=== PATIENT | female | born 1940 | race Caucasian/White ===

== ENCOUNTER 2018-07-11 06:00 | Outpatient (RCR) | payer MEDICARE ==
[~2018-07-11 06:00] MED LIST: ATOR40TA; CHOL10003 PO; CLPD75T; HYDRALAZINE HCL; LSNP10T; METOPROLOL SUCCINATE
== END 2018-07-14 | disposition home or self-care (01) ==
LOC: CR3 06:00
PROVIDERS: ATTEND Internal Medicine
DX: Z29.8 Encounter for other specified prophylactic measures (principal)

== ENCOUNTER 2018-08-11 13:59 | Outpatient (RCR) | payer MEDICARE | END 2018-08-17 | disposition home or self-care (01) | LOC: CR3 13:59 | PROVIDERS: ATTEND Internal Medicine | DX: Z29.8 Encounter for other specified prophylactic measures (principal) ==

== ENCOUNTER 2018-09-22 08:13 | Outpatient (RCR) | payer MEDICARE | END 2018-09-23 | disposition home or self-care (01) | LOC: CR3 08:13 | PROVIDERS: ATTEND Internal Medicine | DX: Z29.8 Encounter for other specified prophylactic measures (principal) ==

== ENCOUNTER 2018-10-25 08:05 | Outpatient (RCR) | payer MEDICARE | END 2018-10-26 | disposition home or self-care (01) | LOC: CR3 08:05 | PROVIDERS: ATTEND Internal Medicine | DX: Z29.8 Encounter for other specified prophylactic measures (principal) ==

== ENCOUNTER 2018-11-22 08:12 | Outpatient (RCR) | payer MEDICARE | END 2018-11-26 | disposition home or self-care (01) | LOC: CR3 08:12 | PROVIDERS: ATTEND Internal Medicine | DX: Z29.8 Encounter for other specified prophylactic measures (principal) ==

== ENCOUNTER 2018-12-27 08:19 | Outpatient (RCR) | payer MEDICARE | END 2018-12-28 | disposition home or self-care (01) | LOC: CR3 08:19 | PROVIDERS: ATTEND Internal Medicine | DX: Z29.8 Encounter for other specified prophylactic measures (principal) ==

== ENCOUNTER 2019-01-26 09:35 | Outpatient (RCR) | payer MEDICARE | END 2019-01-27 | disposition home or self-care (01) | LOC: CR3 09:35 | PROVIDERS: ATTEND Internal Medicine | DX: Z29.8 Encounter for other specified prophylactic measures (principal) ==

== ENCOUNTER 2019-03-07 10:26 | Outpatient (RCR) | payer MEDICARE | END 2019-03-11 | disposition home or self-care (01) | LOC: CR3 10:26 | PROVIDERS: ATTEND Internal Medicine | DX: Z29.8 Encounter for other specified prophylactic measures (principal) ==

== ENCOUNTER 2019-04-10 06:00 | Outpatient (RCR) | payer MEDICARE | END 2019-04-11 | disposition home or self-care (01) | LOC: CR3 06:00 | PROVIDERS: ATTEND Internal Medicine | DX: Z29.8 Encounter for other specified prophylactic measures (principal) ==

== ENCOUNTER 2019-05-09 09:12 | Outpatient (RCR) | payer MEDICARE | END 2019-05-13 | disposition home or self-care (01) | LOC: CR3 09:12 | PROVIDERS: ATTEND Internal Medicine | DX: Z29.8 Encounter for other specified prophylactic measures (principal) ==

== ENCOUNTER → 2019-05-29 | Outpatient (CLI) | payer MEDICARE ==
[2019-05-29 16:27] LABS: ABSOLUTE RETIC # 83 10e9/L (24-90); RETICULOCYTE % 1.49 % (0.50-2.40)
[2019-05-29 16:54] LABS: BAND NEUTROPHILS 2 %; NEUTROPHILS % (MANUAL) 68 %
[2019-05-29 16:55] LABS: EOSINOPHILS % (MANUAL) 5 %; LYMPHOCYTES % (MANUAL) 17 %; METAMYELOCYTES % 1 %; MONOCYTES % (MANUAL) 7 %; RBC MORPH NORMAL
== END ==
LOC: LABNPT 16:17
PROVIDERS: ATTEND Family Medicine
DX: Z01.812 Encounter for preprocedural laboratory examination (principal)
CPT/HCPCS: 85007; 85045

== ENCOUNTER 2019-06-06 09:31 | Outpatient (RCR) | payer MEDICARE | END 2019-06-13 | disposition home or self-care (01) | LOC: CR3 09:31 | PROVIDERS: ATTEND Internal Medicine | DX: Z29.8 Encounter for other specified prophylactic measures (principal) ==

== ENCOUNTER → 2019-07-05 | Outpatient (CLI) | payer MEDICARE | LOC: RAD 12:12 | PROVIDERS: ATTEND Internal Medicine Hematology & Oncology | DX: Z53.9 Procedure and treatment not carried out, unspecified reason (principal); R27.0 Ataxia, unspecified ==

== ENCOUNTER 2019-08-03 09:15 | Outpatient (RCR) | payer MEDICARE | END 2019-08-22 | disposition home or self-care (01) | LOC: CR3 09:15 | PROVIDERS: ATTEND Internal Medicine | DX: Z29.8 Encounter for other specified prophylactic measures (principal) ==

== ENCOUNTER 2019-08-24 13:00 | Outpatient (RCR) | payer MEDICARE | END 2019-09-23 | disposition home or self-care (01) | LOC: CR3 13:00 | PROVIDERS: ATTEND Internal Medicine | DX: Z29.8 Encounter for other specified prophylactic measures (principal) ==

== ENCOUNTER 2019-10-10 20:21 | Outpatient (CLI) | payer MEDICARE | END 2019-10-11 07:00 | disposition home or self-care (01) | LOC: SLEEP 20:21 | PROVIDERS: ATTEND Internal Medicine Hematology & Oncology | DX: G47.9 Sleep disorder, unspecified (principal); R06.83 Snoring | CPT/HCPCS: 95810 ==

== ENCOUNTER 2019-10-30 06:00 | Outpatient (RCR) | payer MEDICARE | END 2019-11-25 | disposition home or self-care (01) | LOC: CR3 06:00 | PROVIDERS: ATTEND Internal Medicine | DX: Z29.8 Encounter for other specified prophylactic measures (principal) ==

== ENCOUNTER → 2020-02-04 | Outpatient (CLI) | payer OTHER, MEDICARE ==
[2020-02-04 16:04] LABS: EOSINOPHILS % (AUTO) 9 % (0-10); HEMATOCRIT 49 % (35-52); HEMOGLOBIN 15.4 G/DL (11.5-16.0); LYMPHOCYTES % (AUTO) 15 % (12-44); MEAN CORPUSCULAR HEMOGLOBIN 31 PG (25-34); MEAN CORPUSCULAR HGB CONC 32 G/DL (32-36); MEAN CORPUSCULAR VOLUME 97 FL (80-99); MEAN PLATELET VOLUME 11.1 FL (7.4-10.4); MONOCYTES % (AUTO) 9 % (0-12); NEUTROPHILS % (AUTO) 67 % (42-75); PLATELET COUNT 139 10^3/uL (130-400); RED CELL DISTRIBUTION WIDTH 13.1 % (10.0-14.5); WHITE BLOOD COUNT 21.4 10^3/uL (4.3-11.0)
[2020-02-04 16:05] LABS: BAND NEUTROPHILS 0 %; BASOPHILS # (AUTO) 0.1 10^3/uL (0.0-0.1); BASOPHILS % (AUTO) 1 % (0-10); BASOPHILS % (MANUAL) 1 %; EOSINOPHILS % (MANUAL) 11 %; LYMPHOCYTES # (AUTO) 3.3 X 10^3 (1.0-4.0); LYMPHOCYTES % (MANUAL) 11 %; MONOCYTES # (AUTO) 1.8 X 10^3 (0.0-1.0); MONOCYTES % (MANUAL) 6 %; NEUTROPHILS # (AUTO) 14.2 X 10^3 (1.8-7.8); NEUTROPHILS % (MANUAL) 71 %; RBC MORPH NORMAL
[2020-02-04 16:06] LABS: ABSOLUTE RETIC # 108 10e9/L (24-90); RETICULOCYTE % 2.15 % (0.50-2.40)
[2020-02-04 16:09] LABS: POLYCHROMASIA SLIGHT
== END ==
LOC: GIR 06:33
PROVIDERS: ATTEND Family Medicine
DX: D72.829 Elevated white blood cell count, unspecified (principal)
CPT/HCPCS: 85007; 85027; 85045

== ENCOUNTER → 2020-08-20 | Outpatient (CLI) | payer OTHER, MEDICARE | LOC: GIR 16:10 | PROVIDERS: ATTEND Nurse Practitioner Family | DX: Z20.828 Contact with and (suspected) exposure to other viral communicable diseases (principal) | CPT/HCPCS: 87635 ==